=== PATIENT | female | born 1965 | race Caucasian/White ===

== ENCOUNTER 2018-06-05 09:28 | Emergency (ER) | payer BC, OTHER ==
[2018-06-05 09:33] VITALS: BP 159/105; PULSE 108; RESP 18; TEMP 97.9
--- NOTE | 2018-06-05 09:43 | ED ---
General Adult HPI - General Chief complaint: Fall Stated complaint: IHS, wrist pain Time Seen by Provider: 06/05/18 09:38 Source: patient, RN notes reviewed Mode of arrival: ambulatory Limitations: no limitations - History of Present Illness Initial comments: Patient 53-year-old female presenting to the emergency room today with a chief complaint of a injury to the right wrist that occurred just prior to arrival. She states that she tripped falling backwards. She states she did put her right hand out catch herself. She states she is expressing increased pain to the right wrist area worse with any movement. Patient denies any head injury or loss conscious. Denies any other complaints or symptoms. Patient denies any recent fever, chills, shortness of breath, chest pain, back pain, abdominal pain , nausea or vomiting, numbness or tingling, or any other complaints. - Related Data Previous Rx's Medication Instructions Recorded Losartan [Cozaar] 25 mg PO DAILY #30 tab 12/27/14 Ibuprofen [Motrin] 600 mg PO Q6HR PRN #40 day 06/05/18 Allergies Allergy/AdvReac Type Severity Reaction Status Date / Time No Known Allergies Allergy Verified 06/05/18 09:33 Review of Systems ROS Statement: Those systems with pertinent positive or pertinent negative responses have been documented in the HPI. ROS Other: All systems not noted in ROS Statement are negative. Past Medical History Past Medical History: No Reported History Additional Past Medical History / Comment(s): PRE-HYPERTENSION PER PT History of Any Multi-Drug Resistant Organisms: None Reported Past Surgical History: Section Past Anesthesia/Blood Transfusion Reactions: No Reported Reaction Past Psychological History: No Psychological Hx Reported Smoking Status: Never smoker Past Alcohol Use History: None Reported, Rare Past Drug Use History: None Reported - Past Family History Father Family Medical History: Hypertension Additional Family Medical History / Comment(s): CARDAIC CATH WITH STENT Mother Family Medical History: Cancer Additional Family Medical History / Comment(s): PAST AWAY FROM [facility] [place] General Exam - General Exam Comments Initial Comments: General: The patient is awake and alert, in no distress, and does not appear acutely ill. Neck: The neck is supple, there is no tenderness or JVD. Musculoskeletal: Patient has tenderness to the distal radius and ulna. Cap refill less than 2 seconds. Radial pulses plus. Patient shows limited range of motion with flexion and extension and supination of the right wrist area. Neurological: A&O x 3. CN II-XII intact, There are no obvious motor or sensory deficits. Coordination appears grossly intact. Speech is normal. Skin: Skin is warm and dry and no rashes or lesions are noted. Psychiatric: Normal mood and affect. Limitations: no limitations Course Vital Signs 06/05/18 09:31 Temperature 97.9 F Pulse Rate 108 H Respiratory 18 Rate Blood Pressure 159/105 O2 Sat by Pulse 99 Oximetry Medical Decision Making - Medical Decision Making Patient's x-ray reviewed and does show a distal radius fracture with minimal displacement. Results were discussed with patient. She has been splinted in a volar short arm OCL splint on the right. Neurovascular rechecked and intact. Patient is advised follow-up with advertising sales manager over the next 2 days. Advised ice elevate and use Tylenol/ibuprofen for pain. Disposition Clinical Impression: Wrist fracture Disposition: HOME SELF-CARE Condition: Good Instructions: Wrist Fracture in Adults (ED) Additional Instructions: Please continue to ice elevate the affected areas 4 times a day for 20 minutes at a time. Please leave splint placed to follow-up appointment with orthopedics over the next 2 days. Please continue with ibuprofen/Tylenol ibuprofen for pain as needed. Please return to emergency room if any symptoms increase or worsen. Prescriptions: Ibuprofen [Motrin] 600 mg PO Q6HR PRN #40 day PRN Reason: Pain Is patient prescribed a controlled substance at d/c from ED?: No Referrals: Enrrique Swanson III, MD [Primary Care Provider] - 1-2 days Good Manley MD [Medical Doctor] - 1-2 days Time of Disposition: 10:04
--- NOTE | 2018-06-05 10:08 | XR ---
EXAMINATION TYPE: XR wrist limited RT DATE OF EXAM: 06/05/2018 COMPARISON: NONE HISTORY: Pain TECHNIQUE: Twoviews submitted. FINDINGS: There is a intra-articular displaced fracture of the distal radius. Chip fracture off the ulnar stylo id also suspected. IMPRESSION: 1. Impacted intra-articular fracture distal radius 2. Chip fracture ulnar styloid
== END 2018-06-05 10:17 | disposition home or self-care (01) ==
LOC: EC 09:28
DX: S52.501A Unspecified fracture of the lower end of right radius, initial encounter for closed fracture (principal); W01.0XXA Fall on same level from slipping, tripping and stumbling without subsequent striking against object, initial encounter; Y92.69 Other specified industrial and construction area as the place of occurrence of the external cause; Y99.0 Civilian activity done for income or pay
CPT/HCPCS: 29125; 99283

== ENCOUNTER 2019-05-25 13:27 | Day surgery (SDC) | payer BC ==
[2019-05-21 13:13] VITALS: BMI 24.1
[~2019-05-25 13:27] MED LIST: LIDOCAINE 1% 20 ML VIAL (10MG/ML) FOR IV START INTRADERMA PRN
[2019-05-25 14:02] VITALS: RESP 16; TEMP 97.8
[2019-05-25] MEDS: LACTATED RINGERS 1,000 ML IV SCH ×2 (14:05→15:34)
[2019-05-25] MEDS ORDERED: amLODIPine 2.5 MG TAB PO STA (14:15)
[2019-05-25] MEDS ORDERED: PROPOFOL 10 MG/ML 20 ML VIAL IV ONE (15:35)
--- NOTE | 2019-05-25 15:39 | P.GSHP ---
History of Present Illness H&P Date: 05/25/19 Chief Complaint: Colon cancer screening 54-year-old female here today for screening colonoscopy. She has not had one previously. No bowel related complaints. No family history of colon cancer. Past Medical History Past Medical History: No Reported History, Hypertension Additional Past Medical History / Comment(s): OAB History of Any Multi-Drug Resistant Organisms: None Reported Past Surgical History: Section, Orthopedic Surgery Additional Past Surgical History / Comment(s): RIGHT WRIST CARPAL TUNNEL WITH HARDWARE (JANUARY 2019) Past Anesthesia/Blood Transfusion Reactions: No Reported Reaction Past Psychological History: No Psychological Hx Reported Smoking Status: Never smoker Past Alcohol Use History: None Reported, Rare Past Drug Use History: None Reported - Past Family History Father Family Medical History: Cancer, Hypertension Additional Family Medical History / Comment(s): CARDAIC CATH WITH STENT, LYM PHOMA Mother Family Medical History: Cancer Additional Family Medical History / Comment(s): OVARIAN CANCER Medications and Allergies Home Medications Medication Instructions Recorded Confirmed Type Oxybutynin Chloride [Ditropan XL] 10 mg PO DAILY 05/21/19 05/25/19 History amLODIPine [Norvasc] 2.5 mg PO DAILY 05/21/19 05/25/19 History Allergies Allergy/AdvReac Type Severity Reaction Status Date / Time No Known Allergies Allergy Verified 05/25/19 13:53 Surgical - Exam Vital Signs Temp Pulse Resp BP Pulse Ox 97.8 F 96 16 168/103 100 05/25/19 13:59 05/25/19 13:59 05/25/19 13:59 05/25/19 13:59 05/25/19 13:59 Physical exam: General: Well-developed, well-nourished HEENT: Normocephalic, sclerae nonicteric Abdomen: Nontender, nondistended Extremities: No edema Neuro: Alert and oriented Assessment and Plan (1) Colon cancer screening Narrative/Plan: Will proceed with colonoscopy at this time Current Visit: Yes Status: Acute Code(s): Z12.11 - ENCOUNTER FOR SCREENING FOR MALIGNANT NEOPLASM OF COLON SNOMED Code(s): 346729312
--- NOTE | 2019-05-25 15:55 | P.PCN ---
Date of Procedure: 05/25/19 Procedure(s) Performed: PREOPERATIVE DIAGNOSIS: Colon cancer screening POSTOPERATIVE DIAGNOSIS: Diverticulosis PROCEDURE: Colonoscopy ANESTHESIA: MAC SURGEON: Hamilton Fernández M.D. SPECIMENS: None ENDOSCOPIC PROCEDURE: The patient was placed on the endoscopy table in the left decubitus position. The Olympus colonoscope was inserted into the anus and passed under direct visualization to the base of the cecum. The appendiceal orifice was visualized. From that point the scope was slowly withdrawn inspe cting all surfaces carefully. There were no neoplastic inflammatory or polypoid lesions throughout the cecum, ascending, transverse, descending, sigmoid and rectum. There was mild to moderate left-sided diverticulosis noted. Digital rectal examination was normal. The patient was taken to the recovery room in stable condition per anesthesia guidelines. RECOMMENDATIONS: Increase fiber. Follow colonoscopy 10 years
[2019-05-25 16:21] VITALS: PULSE 76
[2019-05-25 16:32] VITALS: BP 165/99
== END 2019-05-25 16:38 | disposition home or self-care (01) ==
LOC: ORWHC2ENDO 13:27
PROVIDERS: ATTEND Surgery
DX: Z12.11 Encounter for screening for malignant neoplasm of colon (principal); K57.30 Diverticulosis of large intestine without perforation or abscess without bleeding; I10 Essential (primary) hypertension; N32.81 Overactive bladder; Z79.899 Other long term (current) drug therapy; Z80.41 Family history of malignant neoplasm of ovary; Z82.49 Family history of ischemic heart disease and other diseases of the circulatory system; Z80.7 Family history of other malignant neoplasms of lymphoid, hematopoietic and related tissues
CPT/HCPCS: G0121; J2704

== ENCOUNTER → 2019-06-04 | Outpatient (CLI) | payer BC ==
--- NOTE | 2019-06-05 07:52 | US ---
EXAMINATION TYPE: US thyroid st tissue head/neck DATE OF EXAM: 06/04/2019 COMPARISON: NONE CLINICAL HISTORY: 54-year-old female R94.6 Abn Result Thyroid Function,E04.1 Nodule. TECHNIQUE: Multiple sonographic images of the thyroid gland are obtained. FINDINGS: GLAND SIZE: Right Lobe: 6.8 x 2.4 x 2.3 cm Overall Parenchyma: heterogenous Left Lobe: 5.7 x 2.5 x 3.2 cm Overall Parenchyma: heterogeneous Isthmus Thickness: 0.3 cm NODULES RIGHT: # of nodules measured on right: 2 1. 2.1 X 1.9 x 2.3 cm mixed, solid cystic nodule, at the mid pole with well-defined margins. This nodule is wider than tall and shows intranodular vascularity. No prior 2. 2.1 X 2.0 x 2.0 cm a mixed solid cystic, primarily solid nodule at the lower pole with well-defin ed margins. A 1.4 cm cystic component is present within. This nodule is wider than tall and shows int ranodular vascularity. No prior LEFT: # of nodules measured on left: 1. 4.1 X 2.1 x 3.0 cm mixed solid cystic nodule at the mid pole with well-defined margins. This has a soft tissue rind and internal thickened septation. This nodule is wider than tall and shows intran odular vascularity. No prior ISTHMUS: # of nodules measured in the isthmus: 0 Bilateral neck scanned, no evidence of lymphadenopathy. IMPRESSION: Mixed solid cystic nodules, the dominant one on the left measures 4.1 cm and two on the right measuri ng up to 2.3 cm. The decision to biopsy should be made on a clinical basis.
== END | disposition home or self-care (01) ==
LOC: RADUSWWP 16:14
PROVIDERS: ATTEND Family Medicine
DX: E04.1 Nontoxic single thyroid nodule (principal); R94.6 Abnormal results of thyroid function studies
CPT/HCPCS: 76536

== ENCOUNTER 2019-06-18 09:14 | Day surgery (SDC) | payer BC ==
[2019-06-18 09:53] VITALS: RESP 16; TEMP 97
[2019-06-18 11:02] VITALS: BP 135/76; PULSE 76
--- NOTE | 2019-06-18 15:12 | US ---
EXAMINATION TYPE: US FNA thyroid first lesion, US FNA thyroid each add lesion, US FNA thyroid each ad d lesion DATE OF EXAM: 06/18/2019 COMPARISON: Previous ultrasound dated 06/04/2019 HISTORY: Thyroid nodules. Maximal barrier technique was utilized. After informed consent, skin overlying the lower pole right lobe lesion was localized with ultrasound and the overlying skin prepped and draped. Ultrasound was u tilized using sterile technique. Lidocaine was used for local anesthesia. Five passes with a 25-gaug e needle were made into the nodule and aspirated specimen was submitted to cytology. Using similar te chnique the midpole cystic lesion in the right lobe was sampled. 5 passes submitted to cytology. Jenny cleary, the left lobe dominant cystic nodule was sampled using similar technique. 5 passes with a cytolo gy. Following the procedure hemostasis achieved. No immediate complication. The patient discharged in stable condition. IMPRESSION: STATUS POST ULTRASOUND GUIDED FINE NEEDLE ASPIRATION OF THYROID NODULES bilaterally, PATH OLOGY IS PENDING. THIS PROCEDURE WAS PERFORMED BY THE UNDERSIGNED.
== END 2019-06-18 11:00 | disposition home or self-care (01) ==
LOC: RADPROMAIN 09:14
PROVIDERS: ATTEND Family Medicine
DX: E04.2 Nontoxic multinodular goiter (principal); I10 Essential (primary) hypertension; E78.5 Hyperlipidemia, unspecified; E87.6 Hypokalemia; Z86.19 Personal history of other infectious and parasitic diseases; Z79.899 Other long term (current) drug therapy; Z87.891 Personal history of nicotine dependence; Z98.890 Other specified postprocedural states; Z98.891 History of uterine scar from previous surgery
CPT/HCPCS: 10005; 10006; 88173; 88305

== ENCOUNTER → 2019-12-18 | Outpatient (CLI) | payer BC ==
--- NOTE | 2019-12-18 09:53 | US ---
EXAMINATION TYPE: US thyroid st tissue head/neck DATE OF EXAM: 12/18/2019 COMPARISON: Thyroid ultrasound dated 06/04/2019 and fine-needle aspirations (3, dated 06/18/2019) CLINICAL HISTORY: E04.1 Thyroid nodule. Follow up thyroid nodules. Hx thyroid bx. Not on thyroid me ds GLAND SIZE: Right Lobe: 6.1 x 2.7 x 2.5 cm Overall Parenchyma: heterogenous Left Lobe: 5.6 x 3.5 x 2.8 cm Overall Parenchyma: heterogeneous Isthmus Thickness: 1.2 cm NODULES- Multiple thyroid nodules visualized, largest measured RIGHT: # of nodules measured on right: 2 1. 2.4 X 2.4 x 2.3 cm mixed nodule at the mid pole with well-defined margins. This nodule is wider than tall and shows intranodular vascularity. Prior size: 2.1 x 1.9 x 2.3 cm 2. 1.9 x 2.1x 1.9 cm mixed nodule at the lower pole with well-defined margins. This nodule is wider than tall and shows intranodular vascularity. Prior size: 2.1 x 2.0 x 2.0 cm LEFT: # of nodules measured on left: 1 1. 4.8 X 3.1 x 2.3 cm mixed nodule at the mid pole with well-defined margins. Within the cystic po rtion of nodules, moving internal debris visualized. This nodule is wider than tall and shows intrano dular vascularity. Prior size: 4.1 x 2.1 x 3.0 cm ISTHMUS: # of nodules measured in the isthmus: 1 1. 1.8 X 2.0 x 1.3 cm solid nodule at the inferior left pole with well-defined margins. This nodul e is wider than tall and shows intranodular vascularity. Prior size: No prior Bilateral neck scanned, no evidence of lymphadenopathy. IMPRESSION: No interval growth of the right-sided thyroid nodules. The left thyroid nodule has slight ly increased in size overall and the interim however has been previously biopsied in 2019. Correlate with biopsy results. A new isthmus nodule is seen measuring 2.0 cm. Fine-needle aspiration could be c onsidered given the size of the nodule versus surveillance exam in 6-12 months.
== END | disposition home or self-care (01) ==
LOC: RADUSWWP 08:10
PROVIDERS: ATTEND Otolaryngology
DX: E04.2 Nontoxic multinodular goiter (principal)
CPT/HCPCS: 76536

== ENCOUNTER → 2020-10-06 | Outpatient (CLI) | payer BC ==
--- NOTE | 2020-10-06 10:32 | US ---
EXAMINATION TYPE: US thyroid st tissue head/neck DATE OF EXAM: 10/06/2020 COMPARISON: NONE CLINICAL HISTORY: E04.1 Thyroid nodule. Follow up thyroid nodules. No thyroid medications. GLAND SIZE: Right Lobe: 6.0 x 2.8 x 2.8 cm Overall Parenchyma: heterogenous Left Lobe: 6.5 x 3.7 x 3.0 cm Overall Parenchyma: heterogeneous Isthmus Thickness: 0.3 cm NODULES RIGHT: # of nodules measured on right: 2 1. 3.1 X 2.4 x 2.8 cm mixed cystic and solid, isoechoic nodule, which is taller than wide, with smo oth margins, without echogenic foci. Prior size: 2.4 x 2.4 x 2.3 cm 2. 1.4 X 1.4 x 1.1 cm mixed cystic and solid, hypoechoic nodule, which is wider than tall, with smo oth margins, without echogenic foci. Prior size: 1.9 x 2.1 x 1.9 cm LEFT: # of nodules measured on left: 1 1. 5.4 X 3.6 x 2.5 cm mixed cystic and solid, hyperechoic nodule, which is wider than tall, with sm ooth margins, without echogenic foci. Debris seen moving within cystic component of lesion. Prior size: 4.8 x 3.1 x 2.3 cm ISTHMUS: # of nodules measured in the isthmus: 1 1. 1.7 X 1.3 x 1.0 cm mixed cystic and solid, hypoechoic nodule, which is wider than tall, with smo oth margins, without echogenic foci. Prior size: 1.8 x 2.0 x 1.3 cm Bilateral neck scanned, no evidence of lymphadenopathy. IMPRESSION: 1. Stable nodule isthmus lobe thyroid. Continued follow-up is recommended. 2. Enlarging left lobe thyroid nodule. 3. Enlarging right lobe thyroid nodule. 2017 ACR TI-RADS LEVEL: 3 *Highest TI-RADS level nodule reported
== END | disposition home or self-care (01) ==
LOC: RADUSWWP 09:28
PROVIDERS: ATTEND Otolaryngology
DX: E04.2 Nontoxic multinodular goiter (principal); E04.1 Nontoxic single thyroid nodule
CPT/HCPCS: 76536

== ENCOUNTER → 2020-10-21 | Outpatient (CLI) | payer BC ==
--- NOTE | 2020-10-21 14:40 | MM ---
Reason for exam: screening (asymptomatic). Last mammogram was performed 4 years and 2 months ago. History: Patient is postmenopausal. Physical Findings: A clinical breast exam by your physician is recommended on an annual basis and results should be correlated with mammographic findings. MG Screening Mammo w CAD Bilateral CC, MLO, and XCCL view(s) were taken. Prior study comparison: August 27, 2016, bilateral MG 3d screening mammo w/cad. The breast tissue is heterogeneously dense. This may lower the sensitivity of mammography. There are benign appearing round calcifications bilaterally. Asymmetric breast tissue left breast medially, stable. There is no discrete abnormality. ASSESSMENT: Benign, BI-RAD 2 RECOMMENDATION: Routine screening mammogram of both breasts in 1 year.
== END | disposition home or self-care (01) ==
LOC: RADMAMWWP 07:04
PROVIDERS: ATTEND Family Medicine
DX: Z12.31 Encounter for screening mammogram for malignant neoplasm of breast (principal)
CPT/HCPCS: 77067

== ENCOUNTER → 2021-03-13 | Outpatient (CLI) | payer BC ==
--- NOTE | 2021-03-14 08:38 | US ---
EXAMINATION TYPE: US thyroid st tissue head/neck DATE OF EXAM: 03/13/2021 COMPARISON: US 2019 CLINICAL HISTORY: E04.1 THYROID NODULE. Follow up thyroid nodules, history of FNA GLAND SIZE: Right Lobe: 6.0 x 2.7 x 2.6 cm Overall Parenchyma: heterogenous Left Lobe: 6.0 x 2.9 x 3.8 cm Overall Parenchyma: heterogeneous Isthmus Thickness: 0.3 cm NODULES RIGHT: # of nodules measured on right: 2 1. 3.0 X 2.7 x 2.6 cm, mid mid/lower, mixed cystic and solid, hypoechoic nodule, which is taller th an wide, with smooth margins, without echogenic foci. Prior size: 3.1 x 2.4 x 2.8 cm 2. 1.2 X 0.9 x 1.2 cm, mid lateral, mixed cystic and solid, hypoechoic nodule, which is wider than tall, with smooth margins, without echogenic foci. Prior size: 1.4 x 1.4 x 1.1 cm LEFT: # of nodules measured on left: 1 1. 5.5 X 2.7 x 3.4 cm, mid mid, mixed cystic and solid, hypoechoic nodule, which is wider than tall , with smooth margins, without echogenic foci. Prior size: 5.4 x 3.6 x 2.5 cm ISTHMUS: # of nodules measured in the isthmus: 0 Bilateral neck scanned, no evidence of lymphadenopathy. IMPRESSION: Large nodules bilateral thyroid lobes. If the left lobe thyroid nodule has not been biopsied, fine ne edle aspiration would be recommended. 2017 ACR TI-RADS LEVEL: TR-RADS 3 - Mildly Suspicious: Follow if > 1.5 cm, FNA if > 2.5 cm *Highest TI-RADS level nodule reported
== END | disposition home or self-care (01) ==
LOC: RADUSWWP 15:57
PROVIDERS: ATTEND Otolaryngology
DX: E04.2 Nontoxic multinodular goiter (principal)
CPT/HCPCS: 76536